=== PATIENT | male | born 2000 | race Caucasian/White ===

== ENCOUNTER → 2025-01-08 17:08 | Outpatient (REF) | payer BC, SELFPAY ==
[2025-01-08 17:44] LABS: Hematocrit 42.2 % (39.0-52.0); Hemoglobin 14.4 g/dL (13.0-18.0); Mean Corp Hgb Conc. 34.1 g/dL (33.0-37.0); Mean Corpuscular Volume 87.7 fL (80.0-94.0); Nucleated Red Blood Cells % 0 % (-); Platelet Count 201 10^3/uL (130-400); Red Cell Dist. Width 11.9 % (11.5-14.5)
[2025-01-08 18:06] LABS: ALT (SGPT) 28 U/L (0-50); AST (SGOT) 22 U/L (17-59); Albumin 4.9 g/dl (3.5-5.0); Alkaline Phosphatase 50 U/L (38-126); Blood Urea Nitrogen 17 mg/dl (9-20); Calcium 9.5 mg/dl (8.4-10.2); Carbon Dioxide 29 mmol/L (22-30); Chloride 103 mmol/L (98-107); Glucose 84 mg/dl (70-99); Potassium 4.1 mmol/L (3.5-5.1); Sodium 138 mmol/L (135-145); Total Protein 7.3 g/dl (6.3-8.2); eGFR > 60.00
== END ==
LOC: REG 17:08
PROVIDERS: ATTENDING PHYSICIAN Nurse Practitioner Family; FAMILY PHYSICIAN Nurse Practitioner Family
DX: R11.0 Nausea (principal)
CPT/HCPCS: 36415; 80053; 84443; 85025; 87338